=== PATIENT | male | born 2000 | race Caucasian/White ===

== ENCOUNTER 2024-10-23 12:38 | Emergency (ER) | payer OTHER ==
[~2024-10-23] VITALS: Ht 185.4 cm; Wt 91.8 kg
[2024-10-23] MEDS: KETOROLAC 30 MG/ML 1 ML VIAL IV ONE (13:45)
[2024-10-23] MEDS: NS (Normal Saline) 0.9% 1,000 ML IV ONE (13:45)
[2024-10-23] MEDS: ACETAMINOPHEN *IV* 1,000 MG in IV 1 EA IV ONE (13:45)
[2024-10-23 15:17] LABS: MONO SCRN NEGATIVE (NEGATIVE)
[2024-10-23] MEDS ORDERED: AMOX500C PO (15:17)
[2024-10-23 15:30] VITALS: BP 123/76; TEMP 99.5; O2SAT 97
== END 2024-10-23 15:45 | disposition home or self-care (01) ==
LOC: M ED 13:23
DX: J02.0 Streptococcal pharyngitis (principal)
CPT/HCPCS: 86308; 87486; 87581; 87633; 87798; 87880; 96361; 96374; 96375; 99284; J0131; J1885